=== PATIENT | male | born 1965 | race Caucasian/White ===

== ENCOUNTER 2020-08-29 00:19 | Emergency (ER) | payer OTHER ==
[~2020-08-29] VITALS: Ht 175.3 cm; Wt 113.4 kg
[2020-08-29 00:21] VITALS: BP 135/102
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
[2020-08-29] MEDS ORDERED: TDAP [DIPH/PERTUSSIS/TET] 0.5 ML VIAL IM ONE ×2 (00:30→00:52)
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
[2020-08-29] MEDS ORDERED: LIDOCAINE 1%-EPI 1:100,000 20 ML VIAL ONE (01:12)
--- NOTE | 2020-08-29 01:31 | NUR ---
AT BEDSIDE FOR SUTURE
--- NOTE | 2020-08-29 02:12 | NUR ---
Patient discharged to home in stable condition. Written and verbal after care instructions given. Patient verbalizes understanding of instruction.
--- NOTE | 2020-08-29 02:23 | NUR ---
PAT[facility]
== END 2020-08-29 02:25 ==
LOC: ER 00:24
DX: S01.81XA Laceration without foreign body of other part of head, initial encounter (principal); S81.011A Laceration without foreign body, right knee, initial encounter; R51.9 Headache, unspecified; Z20.89 Contact with and (suspected) exposure to other communicable diseases; X99.1XXA Assault by knife, initial encounter; Y93.89 Activity, other specified; Y92.89 Other specified places as the place of occurrence of the external cause; Y99.8 Other external cause status
CPT/HCPCS: 12002; 12011; 70450; 99284; J3490; 90715